=== PATIENT | female | born 1970 | race Caucasian/White ===

== ENCOUNTER 2021-08-31 06:36 | Day surgery (SDC) | payer MEDICAID, SELFPAY ==
[~2021-08-31] VITALS: Ht 152.4 cm; Wt 78.0 kg
[2021-08-31] MEDS ORDERED: SIMETHICONE 40 MG/0.6 ML ML ONE (06:40)
[2021-08-31] MEDS ORDERED: MIDAZOLAM HCL 5 MG/5 ML VIAL ONE (06:41)
[2021-08-31] MEDS ORDERED: fentaNYL CITRATE/PF 100 MCG/2 ML AMP ONE (06:41)
[2021-08-31] MEDS ORDERED: MEPERIDINE 100 MG INJ. 100 MG/ML VIAL ONE (07:05)
[2021-08-31 11:48] VITALS: BP_SYST 129
== END 2021-08-31 10:00 | disposition home or self-care (01) ==
LOC: EDSEX 06:36 → SDS 06:36 → SMU 06:37 → SDS 10:00
PROVIDERS: ATTEND Internal Medicine Gastroenterology
DX: Z12.11 Encounter for screening for malignant neoplasm of colon (principal); K64.9 Unspecified hemorrhoids; Z20.822 Contact with and (suspected) exposure to COVID-19; Z79.899 Other long term (current) drug therapy
CPT/HCPCS: 36415; 45378; 82962; 87426; 99152; 99153; G0378; J2175; J2250; U0003; J3010